=== PATIENT | female | born 1995 | race Caucasian/White ===

== ENCOUNTER → 2016-09-01 | Outpatient (CLI) | payer OTHER ==
[2016-09-01 12:49] LABS: Glucose 3 Hour, Gest 62 mg/dL
== END | disposition home or self-care (01) ==
LOC: LABWHC1 08:36
PROVIDERS: ATTEND Obstetrics & Gynecology
DX: O99.810 Abnormal glucose complicating pregnancy (principal); Z3A.15 15 weeks gestation of pregnancy
CPT/HCPCS: 36415; 82951; 82952

== ENCOUNTER → 2016-12-15 | Outpatient (CLI) | payer OTHER ==
[2016-12-15 12:59] LABS: Glucose 3 Hour, Gest 98 mg/dL
== END | disposition home or self-care (01) ==
LOC: LABWHC1 08:31
PROVIDERS: ATTEND Obstetrics & Gynecology
DX: O99.810 Abnormal glucose complicating pregnancy (principal)
CPT/HCPCS: 36415; 82951; 82952

== ENCOUNTER 2019-05-02 06:00 | Inpatient (IN) | payer OTHER ==
[2019-05-02] MEDS ORDERED: CARBOPROST TROMETHAMINE 250 MCG/ML 1 ML AMP IM PRN (06:59)
[2019-05-02] MEDS ORDERED: TERBUTALINE 1 MG/ML VIAL SQ PRN (06:59)
[2019-05-02] MEDS ORDERED: METHYLERGONOVINE 0.2 MG/ML 1 ML AMP IM PRN (06:59)
[2019-05-02] MEDS ORDERED: LIDOCAINE 0.5% (PF) 5 MG/ML (50 ML SDV) SQ PRN (06:59)
[2019-05-02] MEDS ORDERED: OXYTOCIN 10 UNIT/ML 1 ML VIAL IM PRN (06:59)
[2019-05-02] MEDS ORDERED: OXYTOCIN 30 UNITS/500 ML NS 30 UNIT in SALINE 1 500ML.BAG IV SCH (07:00)
[2019-05-02] MEDS: LACTATED RINGERS 1,000 ML IV SCH ×4 (07:21→15:39)
[2019-05-02 08:13] VITALS: BMI 36.6
[2019-05-02 08:17] LABS: Basophils % (A) 0 %; Eosinophils # (A) 0.1 k/uL (0-0.7); Eosinophils % (A) 1 %; HCT 35.7 % (34.0-46.0); HGB 11.7 gm/dL (11.4-16.0); Lymphocytes # (A) 1.8 k/uL (1.0-4.8); Lymphocytes % (A) 17 %; MCH 26.6 pg (25.0-35.0); MCHC 32.8 g/dL (31.0-37.0); MCV 81.2 fL (80.0-100.0); Mean Platelet Volume 7.1; Monocytes # (A) 0.6 k/uL (0-1.0); Monocytes % (A) 6 %; Neutrophils # (A) 7.7 k/uL (1.3-7.7); Neutrophils % (A) 74 %; Platelet Count 277 k/uL (150-450); RDW 15.7 % (11.5-15.5); WBC 10.4 k/uL (3.8-10.6)
[2019-05-02] MEDS ORDERED: BUTORPHANOL 1 MG/ML 1 ML VIAL IV PRN (08:28)
--- NOTE | 2019-05-02 08:32 | P.HPOB ---
History of Present Illness H&P Date: 05/02/19 Chief Complaint: 39+ weeks, elective induction The patient is a 24-year-old 2 para 1001 admitted at 39+ weeks as established by last menstrual period and confirmed by 19 week ultrasound. She is admitted for elective induction with a very favorable cervix. Her has been complicated only by having a large for gestational age fetus with growth at the 98th percentile at approximately 35 weeks' gestation. She also is Rh- and received RhoGAM at 28 weeks. On labor and delivery, all signs reassuring. Group B strep status is negative. Obstetrical history: 2 para 1001 with 1 previous normal vaginal delivery at term. Current statistics are listed in history of present illness. EDC of 05/07/2019 was established by last menstrual period and confirmed by 19 week ultrasound. Laboratory workup demonstrates a blood type of O- with a negative antibody screen. Rubella status is immune. The remainder of the laboratory workup was within normal limits. Early Glucola and second trimester Glucola were both normal. Group B strep status is negative. Gynecologic history: Unremarkable with no history of any infections to include S TDs. Review of Systems Review of systems is confined to history of present illness. Past Medical History Past Medical History: No Reported History History of Any Multi-Drug Resistant Organisms: None Reported Past Surgical History: No Surgical Hx Reported Past Anesthesia/Blood Transfusion Reactions: No Reported Reaction Past Psychological History: No Psychological Hx Reported Smoking Status: Never smoker Past Alcohol Use History: None Reported Past Drug Use History: None Reported - Past Family History Mother Family Medical History: No Reported History Medications and Allergies Home Medications Medication Instructions Recorded Confirmed Type Omeprazole Magnesium [Prilosec OTC] 40 mg PO DAILY 02/27/17 05/02/19 History Pnv,Calcium 72/Iron/Folic Acid 1 tab PO DAILY 02/27/17 05/02/19 History [ Plus Tablet] Allergies Allergy/AdvReac Type Severity Reaction Status Date / Time No Known Allergies Allergy Verified 04/17/19 12:58 Exam Vital Signs Temp Pulse Resp BP 05/02/19 07:23 97.2 F L 92 16 115/71 Intake and Output 05/01/19 05/02/19 05/02/19 22:59 06:59 14:59 Other: Weight 112.491 kg In general, this is a well-developed, well-nourished white female in no acute distress. Her heart has a regular rhythm and rate without murmur. Her lungs are clear to auscultation bilaterally in all de [place]. Her abdomen is gravid, nondistended, has normal active bowel sounds, is soft, nontender, and without any palpable masses aside from uterine fundus. Her extremities are without any cyanosis, clubbing, or edema and are nontender to palpation bilaterally. Digital cervical examination on straights her cervix to be 3-4 cm dilated, 60% effaced, the vertex in presentation at -2 to -3 station. Artificial rupture of membranes is carried out demonstrating clear fluid. Results Result Diagrams: 05/02/19 07:59 Abnormal Lab Results - Last 24 Hours (Table) 05/02/19 Range/Units 07:59 RDW 15.7 H (11.5-15.5) % Assessment and Plan (1) Term Current Visit: Yes Status: Acute Code(s): Z34.90 - ENCNTR FOR SUPRVSN OF NORMAL , UNSP, UNSP TRIMESTER SNOMED Code(s): 22485355 (2) macrosomia in Current Visit: Yes Status: Acute Code(s): O36.60X0 - MATERNAL CARE FOR EXCESS GROWTH, UNSP TRIMESTER, UNSP SNOMED Code(s): 30153902 Plan: The patient has been admitted for elective induction of labor. She is aware of the potentially slightly increased risk for delivery in elective induction scenarios versus allowing labor to begin on its own. She has been started on Pitocin and artificial rupture of membranes is been carried out. She will continue to have close maternal and surveillance and expectant management will be practiced. She is a good candidate for either IV or epidural analgesia, whichever she may choose.
[2019-05-02] MEDS ORDERED: ROPIVACAINE 5MG/ML 20ML VIAL ONE (09:47)
[2019-05-02] MEDS ORDERED: fentaNYL (PF) 50 MCG/ML 5 ML AMP ONE (09:47)
[2019-05-02] MEDS ORDERED: SODIUM CHLORIDE 0.9% 100 ML BAG ONE (09:47)
[2019-05-02] MEDS ORDERED: diphenhydrAMINE 25 MG CAP PO PRN (12:50)
[2019-05-02] MEDS ORDERED: diphenhydrAMINE 50 MG CAP PO PRN (12:50)
[2019-05-02] MEDS ORDERED: ACETAMINOPHEN TAB 325 MG TAB PO PRN (12:50)
[2019-05-02] MEDS ORDERED: HYDROCORTISONE 2.5% RECTAL CREAM 30 GM TUBE RECTAL PRN (12:50)
[2019-05-02] MEDS ORDERED: HYDROcodone/APAP 5-325MG 1 EACH TAB PO PRN (12:50)
[2019-05-02] MEDS ORDERED: WITCH HAZEL 1 EACH MED..PAD TOPICAL PRN (12:50)
[2019-05-02] MEDS ORDERED: ZOLPIDEM 5 MG TAB PO PRN (12:50)
[2019-05-02] MEDS ORDERED: LANOLIN CREAM 5 GM TUBE TOPICAL PRN (12:50)
[2019-05-02] MEDS ORDERED: BENZOCAINE/MENTHOL SPRAY 1 GM/SPRAY AEROSOL TOPICAL PRN (12:50)
[2019-05-02] MEDS ORDERED: HYDROcodone/APAP 7.5-325MG 1 EACH TAB PO PRN (12:50)
[2019-05-02] MEDS ORDERED: diphenhydrAMINE 50 MG/ML 1 ML VIAL IVP PRN ×2 (12:50)
[2019-05-02] MEDS ORDERED: SIMETHICONE 80 MG CHEWABLE PO PRN (12:50)
--- NOTE | 2019-05-02 12:54 | P.PROBDLV ---
Vaginal Delivery Note - . Vaginal Delivery Note: The patient is a 24-year-old 2 para 1001 admitted at 39-2/7 weeks by good dating parameters. She is admitted for elective induction of labor with a favorable cervix and all signs reassuring. Her has been uncomplicated though she is Rh- and received RhoGAM at 28 weeks. She also was found to have a large for gestational age fetus with growth at greater than 90th percentile at approximately 35 weeks. On labor and delivery, she had Pitocin augmentation started followed by artificial rupture of membranes demonstrating clear fluid. She had an epidural catheter placed from the onset of the active phase of labor. She made fairly rapid progress to the active phase to complete and then pushed over the course of 21 contraction, 2 pushes, to a normal spontaneous vaginal delivery of a viable 9 lbs. 13 oz. baby boy with Apgars of 9 at 1 minute and 9 at 5 minutes delivered in the right occiput anterior position. The placenta was delivered spontaneously, intact, and grossly normal with a grossly normal three- vessel cord inserted approximately 5 cm from the margin of the placental disc. There was a second-degree midline perineal laceration noted over the site of a previous laceration which was repaired in standard fashion using 3-0 chromic c atgut without difficulty. Estimated blood loss for the case was approximately 350 mL. There were no complications. All sponge, instrument, needle counts were correct. There was a fairly large skin tag noted in the right groin which, after discussion, the patient requested to have removed. The base was injected with half percent lidocaine and it was elevated and excised with the scissors. The base had minimal ongoing bleeding was left alone. Both mother and are resting comfortably in recovery.
[2019-05-02] MEDS ORDERED: OXYTOCIN 20 UNITS/1000 ML NS 1,000 ML IV SCH (13:00)
[2019-05-02 13:31] VITALS: RESP 16
[2019-05-02] MEDS: IBUPROFEN 600 MG TAB PO PRN ×2 (14:41→22:03)
[2019-05-02] MEDS: SENNOSIDES-DOCUSATE SODIUM 1 EACH TAB PO SCH (20:40)
[2019-05-03 06:54] LABS: Basophils % (A) 0 %; Eosinophils # (A) 0.2 k/uL (0-0.7); Eosinophils % (A) 1 %; HCT 30.2 % (34.0-46.0); Lymphocytes # (A) 1.9 k/uL (1.0-4.8); Lymphocytes % (A) 17 %; MCH 26.6 pg (25.0-35.0); MCHC 33.2 g/dL (31.0-37.0); Mean Platelet Volume 7.3; Monocytes # (A) 0.6 k/uL (0-1.0); Monocytes % (A) 5 %; Neutrophils # (A) 8.3 k/uL (1.3-7.7); Neutrophils % (A) 74 %; Platelet Count 236 k/uL (150-450); RBC 3.78 m/uL (3.80-5.40); RDW 15.6 % (11.5-15.5); WBC 11.1 k/uL (3.8-10.6)
[2019-05-03] MEDS: SENNOSIDES-DOCUSATE SODIUM 1 EACH TAB PO SCH (07:53)
[2019-05-03] MEDS: IBUPROFEN 600 MG TAB PO PRN (07:53)
[2019-05-03 08:38] VITALS: BP 122/67; PULSE 79; TEMP 98.2
--- NOTE | 2019-05-03 10:53 | P.DS ---
Providers Date of admission: 05/02/19 06:41 Expected date of discharge: 05/03/19 Attending physician: Anil Baum Primary care physician: Stated None - Discharge Diagnosis(es) (1) Term Current Visit: Yes Status: Acute (2) macrosomia in Current Visit: Yes Status: Acute (3) Normal spontaneous vaginal delivery Current Visit: Yes Status: Acute Hospital Course: The patient is a 24-year-old 2 para 1001 admitted at 39-2/7 weeks by good dating parameters perches admitted for elective induction of labor with all signs reassuring and a very favorable cervix. She is Rh- and received RhoGAM at 28 weeks. She was found to have a fetus growing at the 98th percentile at approximately 35 weeks gestation. Group B strep status is negative. On labor and delivery, she had Pitocin started followed by artificial rupture of membranes demonstrating clear fluid. She later had an epidural catheter placed for analgesia. She made rapid progress through the active phase of labor to complete and then pushed over 1 contraction, 2 pushes, to a normal spontaneous vaginal delivery of a viable 9 lbs. 13 oz. baby boy with Apgars of 9 at 1 minute and 9 at 5 minutes. Her course was unremarkable vital signs remaining stable and her temperature was afebrile throughout. She was deemed stable for discharge on day #1 was discharged home to follow-up in the office in 6 weeks' time routinely. Discharge instructions included calling for any significantly increased bleeding or foul-smelling lochia, significantly increased fever or abdominal pain, perineal complaints, breast complaints, or anything else that concerned her. She is additionally instructed to have nothing in the vagina for at least 6 weeks time to include intercourse. She understood her instructions and agrees to follow up as noted above. Discharge medications included only [id number] analgesic pain medications as well as continued vitamins as she has opted to breast-feed. Maternal blood type is O- and rubella status is immune. Procedures: #1. Pitocin induction #2. Artificial rupture of membranes #3. Epidural analgesia #4. Normal spontaneous vaginal delivery #5. Repair of perineal laceration #6. Excision of right groin skin tag Patient Condition at Discharge: Good Plan - Discharge Summary Discharge Rx Participant: No New Discharge Prescriptions: No Action Pnv,Calcium 72/Iron/Folic Acid [ Plus Tablet] 1 tab PO DAILY Omeprazole Magnesium [Prilosec OTC] 40 mg PO DAILY Discharge Medication List Omeprazole Magnesium [Prilosec OTC] 40 mg PO DAILY 02/27/17 [History] Pnv,Calcium 72/Iron/Folic Acid [ Plus Tablet] 1 tab PO DAILY 02/27/17 [History] Follow up Appointment(s)/Referral(s): Anil Baum MD [STAFF PHYSICIAN] - 6 Weeks Discharge Disposition: HOME SELF-CARE
== END 2019-05-03 15:15 | disposition home or self-care (01) | DRG 807 ==
LOC: 4FBP 06:41
PROVIDERS: ADMIT Obstetrics & Gynecology; ATTEND Obstetrics & Gynecology
PROC: 10E0XZZ Delivery of Products of Conception, External Approach (ICD-10-PCS; principal; 2019-05-02)
PROC: 0KQM0ZZ Repair Perineum Muscle, Open Approach (ICD-10-PCS; 2019-05-02)
PROC: 10907ZC Drainage of Amniotic Fluid, Therapeutic from Products of Conception, Via Natural or Artificial Opening (ICD-10-PCS; 2019-05-02)
PROC: 3E033VJ Introduction of Other Hormone into Peripheral Vein, Percutaneous Approach (ICD-10-PCS; 2019-05-02)
PROC: 00HU33Z Insertion of Infusion Device into Spinal Canal, Percutaneous Approach (ICD-10-PCS; 2019-05-02)
PROC: 3E0R3BZ Introduction of Anesthetic Agent into Spinal Canal, Percutaneous Approach (ICD-10-PCS; 2019-05-02)
DX: O36.63X0 Maternal care for excessive fetal growth, third trimester, not applicable or unspecified (principal); Z37.0 Single live birth; O70.1 Second degree perineal laceration during delivery; O26.893 Other specified pregnancy related conditions, third trimester; Z67.41 Type O blood, Rh negative; Z3A.39 39 weeks gestation of pregnancy
CPT/HCPCS: 85025; 86850; 86900; 86901; 88307